=== PATIENT | male | born 1965 | race Caucasian/White ===

== ENCOUNTER 2025-03-08 08:33 | Outpatient (CLI) | payer OTHER | END 2025-03-08 23:59 | disposition home or self-care (01) | LOC: MRI02 08:33 | PROVIDERS: ATTEND Family Medicine Sports Medicine | DX: M51.17 Intervertebral disc disorders with radiculopathy, lumbosacral region (principal); M54.50 Low back pain, unspecified; M47.816 Spondylosis without myelopathy or radiculopathy, lumbar region; M53.3 Sacrococcygeal disorders, not elsewhere classified; M43.17 Spondylolisthesis, lumbosacral region; M47.27 Other spondylosis with radiculopathy, lumbosacral region; M48.07 Spinal stenosis, lumbosacral region | CPT/HCPCS: 72148 ==